=== PATIENT | female | born 1975 | race Caucasian/White ===

== ENCOUNTER 2023-03-10 16:08 | Outpatient (RCR) | payer OTHER, SELFPAY | END 2023-03-11 15:07 | disposition home or self-care (01) | LOC: RPT 16:08 | PROVIDERS: ATTENDING PHYSICIAN Orthopaedic Surgery; FAMILY PHYSICIAN Nurse Practitioner Family | DX: M76.892 Other specified enthesopathies of left lower limb, excluding foot (principal); M25.552 Pain in left hip | CPT/HCPCS: 97110; 97112; 97140 ==

== ENCOUNTER → 2024-03-17 13:10 | Outpatient (REF) | payer OTHER, SELFPAY | LOC: RAD 13:10 | PROVIDERS: ATTENDING PHYSICIAN Surgery; FAMILY PHYSICIAN Internal Medicine | DX: R10.31 Right lower quadrant pain (principal); R10.32 Left lower quadrant pain | CPT/HCPCS: 74177; Q9967 ==

== ENCOUNTER → 2024-03-18 17:01 | Outpatient (REF) | payer OTHER, SELFPAY | LOC: WDC 17:01 | PROVIDERS: ATTENDING PHYSICIAN Internal Medicine | DX: Z12.31 Encounter for screening mammogram for malignant neoplasm of breast (principal) | CPT/HCPCS: 77063; 77067 ==

== ENCOUNTER 2024-04-08 06:40 | Day surgery (SDC) | payer OTHER, SELFPAY ==
[2024-04-08] VITALS (8 sets, daily range): BP systolic 110–143; BP diastolic 53–90; BMI 32.0
--- NOTE | 2024-04-08 07:48 | W.SUR.PREOP ---
Pre-Operative Surgical Note
-
I have examined this patient prior to the performance of the scheduled procedure.
The patient's condition is unchanged from the time of the current History and
Physical and the patient is able to undergo the scheduled procedure.
--- NOTE | 2024-04-08 07:48 | HP.FOC2 ---
Focused History & Physical
Chief Complaint
HPI:
Chief Complaint: Left inguinal hernia
HPI / Indication for Planned Procedure: This is a 48-year-old female who presented my office with a symptomatic left inguinal hernia which was seen on exam. She also had a potential right inguinal hernia which was confirmed on CT, also noted on CT
and appendix with multiple appendicoliths. After discussion of risk benefits and alternatives the patient consented to bilateral inguinal hernia repair as well as a prophylactic appendectomy. She is aware of the increased risk for potential
infection with concurrent procedure but understands that that it is minimal additional risk. She also has some left periumbilical pain in the setting of a history of endometriosis and a prior diagnostic laparoscopy for such. We will visually
inspect this area as well.
Relevant Past Medical History: Negative
Relevant Social History: Negative
Relevant Family History: Negative
Relevant Past Surgical History: Positive for (Diagnostic lap for endometriosis)
Review of Systems
Review of Pertinent Systems: All Systems Negative
Medication
See Medication form for detailed medications: Yes
Medication List (including Herbals & OTC):
Calcium Magnesium plus D 1 tab PO DAILY 04/01/24
acetaminophen 500 mg capsule 500 mg PO Q6H PRN pain 04/01/24
ascorbic acid (vitamin C) 125 mg chewable tablet (Vitamin C) 125 mg PO DAILY 04/01/24
aspirin 81 mg tablet,delayed release 81 mg PO DAILY 04/01/24
celecoxib 200 mg capsule (Celebrex) 200 mg PO DAILY 04/01/24
cyclobenzaprine 10 mg tablet 10 mg PO DAILY 04/01/24
ferrous sulfate 325 mg (65 mg iron) tablet (Iron (ferrous sulfate)) 325 mg PO DAILY 04/01/24
fjzohuppykv-zxv-mvsvqhlfo-vitC capsule (Glucosamine Complex-MSM capsule) 1 cap PO BID 04/01/24
levothyroxine 25 mcg tablet 25 mcg PO DAILY 04/01/24
lysine 500 mg tablet (L-Lysine) 500 mg PO DAILY 04/01/24
semaglutide (weight loss) 0.25 mg/0.5 mL subcutaneous pen injector (Wegovy) 0.25 mg SC QWEEK 04/01/24
sertraline 100 mg tablet 100 mg PO DAILY 04/01/24
Medications Reviewed: Yes
Allergies and Reactions
Patient has Allergies: Yes
Noted Allergies and Reactions:
Allergy/AdvReac Type Severity Reaction Status Date / Time
menthol [From [facility]] Allergy Rash Verified 04/07/24 14:39
methyl salicylate Allergy Rash Verified 04/07/24 14:39
[From [facility]]
Pertinent Physical Exam
All Other Systems: Negative
Head/Neck: Normal
Diagnosis / Assessment
This is a 48-year-old female with bilateral inguinal hernias and appendicoliths
Plan / Procedure
Will plan for robotic bilateral inguinal hernia repair with mesh followed by a robotic appendectomy.
Anesthesia/Sedation to be done by Anesthesia Provider: Yes
[2024-04-08] MEDS: TYLENOL 1000 MG PO (08:06)
[2024-04-08] MEDS: NORMOSOL-R/PLASMALYTE-A 1000 IV (08:11)
--- NOTE | 2024-04-08 11:34 | W.IMMPOSTOP ---
Surgical Immed Post Op Note
-
Primary Surgeon: Elliot Rodriguez MD
Assisting Surgeon: Clayton Strange, (PGY 1)
Pre-op Diagnosis: Bilateral inguinal hernias, appendicoliths, left upper quadrant pain
Post-op Diagnosis: Same
Procedure Performed:
1. Robotic bilateral inguinal hernia repair with mesh
2. Robotic appendectomy
3. Lysis of adhesions
Anesthesia Type: General
Specimen / Cultures:
1. Left cord lipoma
2. Right cord lipoma
3. Appendix
Estimated Blood Loss: 11 cc
Complications: None
Operative Findings: Bilateral cord lipomas. No femoral, direct or indirect defects. The round ligament was divided bilaterally between Weck clips. The appendix which appeared dilated from the appendicoliths was ligated using Weck clips for the
base of the appendix and the appendiceal artery.
--- NOTE | 2024-04-08 11:37 | OR.RPT ---
Operative Report
Operative Report
Patient Name: Gloria Gallardo
: 1975
Date of Operation: 04/08/2024
Pre-op Diagnosis: Bilateral inguinal hernias, appendicoliths, left upper quadrant pain
Post-op Diagnosis: Same
Procedure Performed:
1. Robotic bilateral inguinal hernia repair with mesh
2. Robotic appendectomy
3. Lysis of adhesions
Primary Surgeon: Elliot Rodriguez MD
Assisting Surgeon: Clayton Strange (PGY 1)
Pharmacy Innovation Assistant: ROMA Martins
Anesthesia Type: General
Estimated Blood Loss: 11 cc
Urine Output: None
Drains/Lines/Implants: Large 3D Max Bard mid weight uncoated polypropylene mesh x2
Specimen / Cultures:
1. Left cord lipoma
2. Right cord lipoma
3. Appendix
Indication for surgery: The patient presented to my office with left inguinal hernia and which was readily palpated as well as some left upper quadrant pain of unclear etiology in the setting of a known endometriosis. A CT scan was performed which
confirmed fat-containing left inguinal hernia as well as a right inguinal hernia. No abnormality was identified in the left upper quadrant on the scan however multiple appendicoliths were seen in her appendix. After reviewing therapeutic options,
she elected to undergo a minimally invasive repair of her hernias bilaterally with mesh as well as prophylactic appendectomy. We plan to examine visually the left upper quadrant for any possible endometriomas that were missed on CT.
Operative Findings: Adhesions were noted in the left upper quadrant, these were lysed completely. Bilateral cord lipomas. No femoral, direct or indirect defects. The round ligament was divided bilaterally between Weck clips. After achieving the
critical view of the MPO, the space was reinforced with large Bard 3D max mid weight uncoated polypropylene mesh x 2, and the peritoneal flap was closed excluding the mesh completely. The appendix which appeared dilated from the appendicoliths was
ligated using Weck clips for the base of the appendix and the appendiceal artery.
Details of the operation:
The patient was brought to the Operating Room and placed in the supine position with the arms tucked. IV antibiotics were infused and Venodyne stockings placed. Following uneventful induction of general endotracheal anesthesia, an orogastric tube
were placed. The abdomen was prepped and draped in the usual sterile fashion. The abdomen was entered using a Veress technique which required 1 pass, pneumoperitoneum to 15 mmHg was obtained without difficulty. An 8mm trochar was passed through
the abdominal wall roughly 20 cm cephalad to the inguinal canal. The Veress needle could not be immediately identified as there were significant adhesions noted in the left upper quadrant. We placed an additional 8 mm port in the right upper
quadrant and another 1 in the left lower quadrant. We then docked the robot with ProGrasp in the left hand and monopolar scissors in the right. We began by lysing the adhesions in the left upper quadrant which was mostly omentum adherent to the
abdominal wall, but no other abnormality was identified. We then turned our attention to the groin bilaterally and began on the left side. Preperitoneal flap was created from the level of the ASIS laterally working our way medially to the medial
umbilical fold. Staying onto the peritoneum we were able to circumferentially dissect around the hernia sac and and peel it off of the underlying tissue. The round ligament was identified and divided between 2 Weck clips. Initially no overt hernia
or abnormality was identified however having visualized her previous CT scan new there was a large cord lipoma which had a very thin stalk but we were able to reduce and resect. We then repeated the exact same dissection on the contralateral side.
Again no true hernia was identified but cord lipoma on a thin stalk was reduced and resected. After confirming critical view of the MPO bilaterally the spaces were reinforced with 2 large 3D max uncoated polypropylene meshes that were secured to
Sid's medially, superior laterally and superior medially with 2-0 Vicryl sutures. The peritoneal flaps were then closed with running 2 oh barbed Monocryl suture. During the closure of the flap, an Angiocath was inserted and 20 cc of quarter
percent Marcaine was instilled. The area in the flap cavity was then evacuated of air confirming that the mesh was flush and there were no folds. After ensuring the mesh was completely excluded we turned our attention to the appendix after rotating
the patient with the right side up. The base of the appendix looked completely normal but about 4 cm distal to this the appendix was actually fairly dilated, likely due to the appendicoliths. A window in the mesoappendix near the base was created
and the base was ligated with 2 Weck clips proximally and 1 distally. The appendix was divided this was used as a handle to then ligate the mesoappendix with the bipolar cautery and a Weck clip for the appendiceal artery. The stump of the
appendix was then imbricated using 2-0 Vicryl suture. All specimens, needles and instruments were then removed and the robot was undocked. The abdomen was then desufflated, and pneumoperitoneum evacuated. All skin sites were then closed with 4-0
Monocryl followed by Dermabond. Counts were correct and overall, the patient tolerated the procedure well and was taken to the Recovery Room postoperatively in stable condition.
I was the attending physician and performed the procedure with assistance of the PA above. The assistance of ROMA Jimenez was required due to the complexity of the procedure. During the procedure Lakshmi assisted with port placement, instrument
and needle exchanges, and closure of the wound. Dr. Strange also assisted during the procedure on the console and closed part of the peritoneal flaps under my supervision. He also assisted with wound closure at the end of the procedure. I was present
for all portions of the case, excluding skin closure.
Elliot Rodriguez MD
== END 2024-04-08 13:25 | disposition home or self-care (01) ==
LOC: SDS 06:40
PROVIDERS: ATTENDING PHYSICIAN Surgery
DX: K40.20 Bilateral inguinal hernia, without obstruction or gangrene, not specified as recurrent (principal); K38.1 Appendicular concretions; R10.12 Left upper quadrant pain; D17.79 Benign lipomatous neoplasm of other sites
CPT/HCPCS: 44970; 49650; 88304; C1781

== ENCOUNTER → 2024-09-23 08:55 | Outpatient (REF) | payer OTHER, SELFPAY | LOC: WDC 08:55 | PROVIDERS: ATTENDING PHYSICIAN Nurse Practitioner Adult Health; FAMILY PHYSICIAN Nurse Practitioner Family | DX: N63.10 Unspecified lump in the right breast, unspecified quadrant (principal); N63.15 Unspecified lump in the right breast, overlapping quadrants | CPT/HCPCS: 76642; 77061; 77065 ==

== ENCOUNTER → 2025-03-19 13:50 | Outpatient (REF) | payer OTHER, SELFPAY | LOC: WDC 13:50 | PROVIDERS: ATTENDING PHYSICIAN Nurse Practitioner Adult Health; FAMILY PHYSICIAN Internal Medicine | DX: Z12.31 Encounter for screening mammogram for malignant neoplasm of breast (principal) | CPT/HCPCS: 77063; 77067 ==